=== PATIENT | female | born 2000 | race Caucasian/White ===

== ENCOUNTER 2025-06-17 22:00 | Emergency (ER) | payer MEDICAID, SELFPAY ==
[2025-06-17] MEDS ORDERED: diphenhydrAMINE 25 MG CAP ONE (22:24)
[2025-06-17 23:05] LABS: Glucose, Urine (Dipstick) Normal (Negative); Leukocyte 25 (Negative); Protein, Urine (Dipstick) 30 mg/dl (Neg-Trace); Specific Gravity, Urine 1.020 (1.005-1.030)
[2025-06-17 23:07] LABS: Pregnancy Test - Urine (BHCG) POSITIVE (Negative); Pregu Control Background? CLEAR/WHITE (CLR/WHITE); Pregu Control Bar Appear? YES (CONTROL BAR)
[2025-06-17 23:12] LABS: Bacteria/HPF 1+ HPF (None Seen); CAUTI Indications for Culture Acute Hematuria; Mucous/LPF 3+ LPF (<2+); RBC/HPF 0-3 HPF (0-3); WBC/HPF 0-3 HPF (0-3)
[2025-06-17 23:13] LABS: Urine Culture Reflex No No
[2025-06-17] MEDS ORDERED: cefTRIAXone (ROCEPHIN) 1 GM VIAL ONE (23:23)
== END 2025-06-17 23:35 | disposition home or self-care (01) ==
LOC: CSHERS 22:00
DX: O98.512 Other viral diseases complicating pregnancy, second trimester (principal); J11.1 Influenza due to unidentified influenza virus with other respiratory manifestations; O99.891 Other specified diseases and conditions complicating pregnancy; E86.0 Dehydration; O21.9 Vomiting of pregnancy, unspecified; Z3A.19 19 weeks gestation of pregnancy
CPT/HCPCS: 81001; 81025; 87081; 87428; 87430; 96372; 99284; J0696; J2550

== ENCOUNTER 2025-07-08 13:22 | Outpatient (CLI) | payer MEDICAID | END 2025-07-08 13:23 | disposition home or self-care (01) | LOC: CSHULT 13:22 | PROVIDERS: ATTEND Family Medicine | DX: O44.42 Low lying placenta NOS or without hemorrhage, second trimester (principal); Z3A.21 21 weeks gestation of pregnancy | CPT/HCPCS: 76805 ==